=== PATIENT | male | born 2000 | race Hispanic/Latino ===

== ENCOUNTER 2022-06-30 06:07 | Emergency (ER) | payer OTHER ==
--- OUTSIDE RECORDS SUMMARY | 2022-06-30 06:10 | XMS REPORT | Continuity of Care Document ---
:[address] [facility] t Address [address] [place] [address] Care Team Providers Name Role Phone Dakotah Aquino Attending Clinician Unavailable CLARA DHILLON Attending Clinician Unavailable Problems This patient has no known problems. Allergies, Adverse Reactions, Alerts Allergy Allergy Status Severity Reaction(s) Onset Inactive Treating Comm ents Source Name Type Date Date Clinician NO KNOWN Drug Active Univers [facility]ERG[facility] Class [facility] of [facility] Medications This patient has no known medications. Procedures This patient has no known procedures. Encounters Start End Encounter Admission Attending Care Care Encounter Source Date/Time Date/Time Type Type Clinicians Facility Department ID 2021-11-[address] [facility] [id number] Common 13:27:09 Avnee [id number] [facility] 2021[facility] [facility] [id number] Common 13:25:28 Avnee [id number] [facility] 2021-11-[address] [facility] [id number] Common 13:22:19 Avnee [id number] [facility] 2021-11-[address] [facility] [id number] Common 13:16:06 Avnee [id number] [facility] 2021-11-29 Outpatient Aquino, STLMLC STLMLC [id number] Common 13:15:42 Avnee [id number] [facility] 2021-11-29 Outpatient Aquino, STLMLC STLMLC [id number] Common 13:14:48 Avnee [id number] [facility] 2022-08-06 2022-08-06 Outpatient Mariana [facility]ILLON [facility] [id number] [id number] Univers 08:30:00 08:30:00 CLARA [id number] [facility] 2022-07-30 2022-07-30 [facility] [id number] [id number] Univers 15:30:00 15:30:00 CLARA [id number] [facility] 2021-05-19 2021-05-19 Outpatient STLMLC STLMLC [id number] Common 00:00:00 00:00:00 [facility] 2021-05-15 2021-05-15 Outpatient STLMLC STLMLC [id number] Common 00:00:00 00:00:00 [facility] 2021-05-15 2021-05-15 Outpatient STLMLC STLMLC [id number] Common 00:00:00 00:00:00 [facility] 2021-05-12 2021-05-12 Outpatient STLMLC STLMLC [id number] Common 00:00:00 00:00:00 [facility] 2021-04-20 2021-04-20 Outpatient STLMLC STLMLC [id number] Common 00:00:00 00:00:00 [facility] 2021-04-19 2021-04-19 Outpatient STLMLC STLMLC [id number] Common 00:00:00 00:00:00 [facility] 2021-04-19 2021-04-19 Outpatient STLMLC STLMLC [id number] Common 00:00:00 00:00:00 [facility] Results This patient has no known results.
[2022-06-30] MEDS ORDERED: NA CHLORIDE 0.9% 2,000 ML ONE (06:53)
[2022-06-30 07:12] LABS: Absolute Lymphocytes (CBC) 1.1 K/uL (0.7-4.9); Hematocrit 45.3 % (39.6-49.0); Lymphocytes % 8.9 % (15.3-44.8); MPV 7.1 fL (7.6-11.3); RBC Red Blood Cell Count 5.33 M/uL (4.33-5.43)
[2022-06-30 07:21] LABS: Protime INR 1.07
[2022-06-30 07:28] LABS: Albumin 4.4 g/dL (3.4-5.0); Bilirubin Total 0.4 mg/dL (0.2-1.0); Protein, Total 8.4 g/dL (6.4-8.2)
[2022-06-30] MEDS ORDERED: ACETAMINOPHEN 500 MG TAB ONE (08:10)
--- NOTE | 2022-06-30 08:20 | RAD REPORT ---
EXAM DESCRIPTION: RAD - Chest Single View - 06/30/2022 8:08 am CLINICAL HISTORY: FEVER COMPARISON: CHEST PA AND LAT 2 VIEW dated 10/15/2012 FINDINGS: Lines: None. Lungs: No evidence of edema or pneumonia. Pleural: No significant pleural effusions or pneumothorax. Cardiac: The heart size is within normal limits. Bones: No acute fractures. Other: IMPRESSION: No acute cardiopulmonary disease.
--- NOTE | 2022-06-30 09:44 | ER ---
Nurse's Notes [facility] Name: Alexander Krishnamurthy Age: 21 yrs Sex: Male : 2000 Arrival Date: 06/30/2022 Time: 06:10 Bed 16 Private MD: Diagnosis: Fever, unspecified;Chest pain, unspecified Presentation: 06/30 06:34 Chief complaint: Patient states: I started having chest pain at 0400. It feels like a jb4 pressure pain that is on the left side of my chest that comes and goes. I am also coughing up green phlegm. Coronavirus screen: Client presents with at least one sign or symptom that may indicate coronavirus-19. Standard/surgical mask placed on the client. Provider contacted for isolation considerations. Ebola Screen: No symptoms or risks identified at this time. Initial Sepsis Screen: Does the patient meet any 2 criteria? RR > 20 per min. Temp <36.0*C (96.8*F)) or > 38.3*C (100.9*F). HR > 90 bpm. Yes Does the patient have a suspected source of infection? Yes: Productive cough/pneumonia If YES to both, name of provider notified: Alfredo Epperson DO Risk Assessment: Do you want to hurt yourself or someone else? Patient reports no desire to harm self or others. Onset of symptoms was June 30, 2022. Transition of care: patient was not received from another setting of care. 06:34 Method Of Arrival: Ambulatory jb4 06:34 Acuity: WESLEY 2 jb4 Triage Assessment: 07:00 General: Behavior is calm, cooperative. jg9 Historical: - Allergies: 06:36 No Known Allergies; jb4 - Home Meds: 06:36 None [Active]; jb4 - PMHx: 06:36 None; jb4 - Immunization history:: Adult Immunizations up to date. - Social history:: Smoking status: Patient denies any tobacco usage or history of. Screenin:05 Fall Risk None identified. jg9 07:07 Abuse screen: Denies threats or abuse. Nutritional screening: No deficits noted. ja4 Tuberculosis screening: No symptoms or risk factors identified. Assessment: 07:00 Reassessment: No changes from previously documented assessment. Patient and/or family jg9 updated on plan of care and expected duration. Pain level reassessed. Patient is alert, oriented x 3, equal unlabored respirations, skin warm/dry/pink. 07:07 General: Appears uncomfortable. Pain: Pain does not radiate. Pain currently is 7 out of ja4 10 on a pain scale. Quality of pain is described as aching, Pain began 2 hours ago. Cardiovascular: No deficits noted. Chest pain. 08:00 Reassessment: No changes from previously documented assessment. Patient and/or family jg9 updated on plan of care and expected duration. Pain level reassessed. Patient is alert, oriented x 3, equal unlabored respirations, skin warm/dry/pink. Patient states feeling better. Patient states symptoms have improved. 09:00 Reassessment: No changes from previously documented assessment. Patient and/or family jg9 updated on plan of care and expected duration. Pain level reassessed. Patient is alert, oriented x 3, equal unlabored respirations, skin warm/dry/pink. Vital Signs: 06:34 BP 144 / 92; Pulse 121; Resp 26; Temp 101.7(O); Pulse Ox 98% on R/A; Weight 108.86 kg jb4 (R); Height 6 ft. 0 in. (182.88 cm) (R); Pain 8/10; 07:00 BP 102 / 65; Pulse 105; Resp 25 S; Pulse Ox 99% on R/A; jg9 08:30 BP 130 / 69; Pulse 99; Resp 19 S; Pulse Ox 100% on R/A; jg9 08:45 BP 127 / 70; Pulse 92; Resp 20 S; Pulse Ox 99% on R/A; jg9 09:30 BP 123 / 63; Pulse 93; Resp 15 S; Temp 98.7(O); Pulse Ox 100% on R/A; jg9 10:00 BP 122 / 69; Pulse 93; Resp 16 S; Pulse Ox 98% on R/A; jg9 06:34 Body Mass Index 32.55 (108.86 kg, 182.88 cm) 4 ED Course: 06:10 Patient arrived in ED. ja2 06:27 Alfredo Epperson DO is Attending Physician. ms3 06:28 Timbo Spencer, RN is Primary Nurse. ja4 06:30 Inserted saline lock: 20 gauge in left antecubital area, using aseptic technique. Blood ja4 collected. Patient maintains SpO2 saturation greater than 95% on room air. 06:36 Triage completed. jb4 06:36 Arm band placed on right wrist. jb4 06:46 Patient has correct armband on for positive identification. Placed in gown. Bed in low mh5 position. Call light in reach. Side rails up X 1. security monitor on. Pulse ox on. NIBP on. 06:46 EKG done, by ED staff, reviewed by Alfredo Epperson DO. 5 07:05 Blood Culture Adult (2) Sent. ja4 07:05 CBC with Diff Sent. ja4 07:05 CMP Sent. ja4 07:05 Lactate Sent. ja4 07:05 Protime (+inr) Sent. ja4 07:05 Ptt, Activated Sent. ja4 07:07 No provider procedures requiring assistance completed. ja4 07:41 Lab(s) recollected, by me, sent to lab. jw7 07:42 Troponin HS Sent. jw7 08:02 Troponin HS Sent. jw7 08:10 XRAY Chest (1 view) In Process Unspecified. EDMS 08:11 Attending Physician role handed off by Alfredo Epperson DO ms3 08:11 Ish Pizano MD is Attending Physician. ms3 10:12 IV discontinued. jg9 Administered Medications: 08:10 Drug: Tylenol 1000 mg Route: PO; 6 09:34 Follow up: Response: No adverse reaction; Temperature is decreased jg9 Medication: 07:07 VIS not applicable for this client. ja4 Outcome: 09:43 Discharge ordered by . rn 10:12 Discharged to home ambulatory. jg9 10:12 Condition: improved 10:12 Discharge instructions given to patient, Instructed on discharge instructions, follow up and referral plans. Demonstrated understanding of instructions, follow-up care, Prescriptions given X 1. 10:12 Patient left the ED. jg9 Signatures: Dispatcher [employer] EDMS Ish Pizano MD MD rn Bryson, James RN RN devin4 Carine Ha [facility] Alfredo Epperson DO DO ms3 Radha Roberts ja2 Lyubov Mendiola, BAIRON RN jh6 Lyubov Tyler, RN RN jg9 Niya Alva7 Timbo Spencer RN RN ja4 Corrections: (The following items were deleted from the chart) 09:35 09:15 BP 123 / 63; Pulse 93bpm; Resp 15bpm; Spontaneous; Pulse Ox 100% RA; Temp 98.7F jg9 Oral; jg9 09:36 08:00 Reassessment: No changes from previously documented assessment. Patient and/or jg9 family updated on plan of care and expected duration. Pain level reassessed. Patient is alert, oriented x 3, equal unlabored respirations, skin warm/dry/pink. jg9
--- NOTE | 2022-06-30 09:44 | EDPHYS ---
Physician Documentation [facility] Name: Alexander Krishnamurthy Age: 21 yrs Sex: Male : 2000 Arrival Date: 06/30/2022 Time: 06:10 Bed 16 Private MD: ED Physician Ish Pizano HPI: 06/30 08:08 This 21 yrs old Male presents to ER via Ambulatory with complaints of Chest ms3 Pain, Fainting, Dizziness, Headache. 08:08 The patient or guardian reports chest pain that is located primarily in the substernal ms3 area. The pain does not radiate. Associated signs and symptoms: Pertinent positives: cough. The chest pain is described as squeezing. Duration: The patient or guardian reports a single episode, that lasted 25 minute(s). Modifying factors: The symptoms are alleviated by nothing. the symptoms are aggravated by nothing. Severity of pain: At its worst the pain was severe in the emergency department the pain is unchanged is a / 10. Historical: - Allergies: 06:36 No Known Allergies; jb4 - Home Meds: 06:36 None [Active]; jb4 - PMHx: 06:36 None; jb4 - Immunization history:: Adult Immunizations up to date. - Social history:: Smoking status: Patient denies any tobacco usage or history of. ROS: 08:08 Neck: Negative for injury, pain, and swelling. ms3 08:08 Abdomen/GI: Negative for abdominal pain, nausea, vomiting, diarrhea, and constipation, MS/Extremity: Negative for injury and deformity, Skin: Negative for injury, rash, and discoloration, Psych: Negative for depression, anxiety, suicide ideation, homicidal ideation, and hallucinations. 08:08 Constitutional: Positive for chills. 08:08 Cardiovascular: Positive for chest pain. 08:08 All other systems are negative. Exam: 06:44 ECG was reviewed by the Attending Physician. ms3 08:08 Constitutional: This is a well developed, well nourished patient who is awake, alert, ms3 and in no acute distress. Head/Face: Normocephalic, atraumatic. Neck: Trachea midline, no cervical lymphadenopathy. Supple, full range of motion without nuchal rigidity, or vertebral point tenderness. No Meningismus. Chest/axilla: Normal chest wall appearance and motion. Nontender with no deformity. 08:08 Respiratory: Lungs have equal breath sounds bilaterally, clear to auscultation and percussion. No rales, rhonchi or wheezes noted. No increased work of breathing, no retractions or nasal flaring. Abdomen/GI: Soft, non-tender, with normal bowel sounds. No distension or tympany. No guarding or rebound. No evidence of tenderness throughout. Skin: Warm, dry with normal turgor. Normal color with no rashes, no lesions, and no evidence of cellulitis. MS/ Extremity: Pulses equal, no cyanosis. Neurovascular intact. Full, normal range of motion. Psych: Awake, alert, with orientation to person, place and time. Behavior, mood, and affect are within normal limits. 08:08 Cardiovascular: Rate: tachycardic, Rhythm: regular, Pulses: no pulse deficits are appreciated, Heart sounds: normal. Vital Signs: 06:34 BP 144 / 92; Pulse 121; Resp 26; Temp 101.7(O); Pulse Ox 98% on R/A; Weight 108.86 kg jb4 (R); Height 6 ft. 0 in. (182.88 cm) (R); Pain 8/10; 07:00 BP 102 / 65; Pulse 105; Resp 25 S; Pulse Ox 99% on R/A; jg9 08:30 BP 130 / 69; Pulse 99; Resp 19 S; Pulse Ox 100% on R/A; jg9 08:45 BP 127 / 70; Pulse 92; Resp 20 S; Pulse Ox 99% on R/A; jg9 09:30 BP 123 / 63; Pulse 93; Resp 15 S; Temp 98.7(O); Pulse Ox 100% on R/A; jg9 10:00 BP 122 / 69; Pulse 93; Resp 16 S; Pulse Ox 98% on R/A; jg9 06:34 Body Mass Index 32.55 (108.86 kg, 182.88 cm) 4 MDM: 06:44 Differential diagnosis: abnormal EKG, acute myocardial infarction, acute pericarditis, ms3 myocarditis, pneumonia. Transition of care: After a detail discussion of the patient's case, care is transferred to Ish Pizano MD. 06:46 Patient medically screened. ms3 09:41 Data reviewed: vital signs, nurses notes, lab test result(s), radiologic studies, plain rn films, and as a result, I will discharge patient. Counseling: I had a detailed discussion with the patient and/or guardian regarding: the historical points, exam findings, and any diagnostic results supporting the discharge/admit diagnosis, lab results, radiology results, the need for outpatient follow up, to return to the emergency department if symptoms worsen or persist or if there are any questions or concerns that arise at home. Special discussion: I discussed with the patient/guardian in detail that at this point there is no indication for admission to the hospital. It is understood, however, that if the symptoms persist or worsen the patient needs to return immediately for re-evaluation. 06/30 06:37 Order name: Blood Culture Adult (2) [facility] 06/30 06:37 Order name: CBC with Diff; Complete Time: 08:28 [facility] 06/30 06:37 Order name: CMP; Complete Time: 08:28 [facility] 06/30 06:37 Order name: Lactate; Complete Time: 08:28 [facility] 06/30 06:37 Order name: Protime (+inr); Complete Time: 08:28 [facility] 06/30 06:37 Order name: Ptt, Activated; Complete Time: 08:28 [facility] 06/30 06:37 Order name: Cardiac monitoring; Complete Time: 07:46 [facility] 06/30 07:08 Order name: Troponin HS; Complete Time: 08:28 06/30 07:08 Order name: XRAY Chest (1 view); Complete Time: 08:28 06/30 07:08 Order name: EKG; Complete Time: 07:08 06/30 08:29 Order name: SARS-COV-2 RT PCR (Document "Date of Onset" if Symptomatic); Complete Time: rn 09:41 06/30 08:29 Order name: Flu; Complete Time: 09:41 06/30 06:37 Order name: EKG - Nurse/Tech; Complete Time: 06:45 [facility] 06/30 06:37 Order name: IV Saline Lock - Large Bore; Complete Time: 07:43 [facility] 06/30 06:37 Order name: Labs collected and sent; Complete Time: 07:05 [facility] 06/30 06:37 Order name: O2 Sat Monitoring; Complete Time: 07:46 [facility] 06/30 07:08 Order name: IV Saline Lock; Complete Time: 07:42 rn EC:44 Rate is 77 beats/min. Rhythm is regular. QRS [place] is Normal. QRS interval is normal. ms3 Clinical impression: NSR w/ Non-specific ST/T Changes and incomplete RBBB. Administered Medications: 08:10 Drug: Tylenol 1000 mg Route: PO; jh6 09:34 Follow up: Response: No adverse reaction; Temperature is decreased jg9 Disposition Summary: 06/30/22 09:43 Discharge Ordered Location: Home rn Problem: new rn Symptoms: have improved rn Condition: Stable rn Diagnosis - Fever, unspecified rn - Chest pain, unspecified rn Followup: rn - With: Private Physician - When: As needed - Reason: Recheck today's complaints, Re-evaluation by your physician Discharge Instructions: - Discharge Summary Sheet rn - Nonspecific Chest Pain, Adult rn - Fever, Adult rn Forms: - Medication Reconciliation Form rn - Thank You Letter rn - Antibiotic cornice maker - Prescription Opioid Use rn - Work release form eb Prescriptions: - Zithromax Z-Harry 250 mg Oral Tablet - take 1 tablet by ORAL route as directed for 5 days Day 1 - take two (2) tablets rn one time. Day 2, 3, 4 , 5 take one (1) tablet once daily.; 6 tablet; Refills: 0, Product Selection Permitted Signatures: Dispatcher [employer] Ish Arriaga MD MD rn Bryson, James RN RN jb4 Alfredo Epperson DO DO ms3 Lyubov Mendiola RN RN jh6 Lyubov Tyler RN jg9 Corrections: (The following items were deleted from the chart) 07:46 06:37 Accucheck ordered. jb4 jg9 08:34 06:37 Oxygen Per Protocol ordered. jb4 jg9
[2022-06-30 10:31] VITALS: TEMP 98.7
[2022-06-30 10:33] VITALS: BP 122/69; O2SAT 98
--- NOTE | 2022-07-02 10:23 | EKG ---
Test Date: 2022-06-30 Test Time: 06:44:41 [employer] Geologist: YOEL MEASUREMENT RESULTS: Intervals: Rate: 77 [place]: 164 QRSD: 92 QT: 320 QTc: 362 [place]: P: 70 WA: 164 QRS: 50 T: 53 INTERPRETIVE STATEMENTS: Normal sinus rhythm Possible Left atrial enlargement Incomplete right bundle branch block Borderline ECG No previous ECG available for comparison Electronically Signed On 07-02-22 10:20:13 CDT by Chase Joyner
== END 2022-06-30 10:12 | disposition home or self-care (01) ==
LOC: ER 06:07
DX: R07.89 Other chest pain (principal); R50.9 Fever, unspecified; Z20.822 Contact with and (suspected) exposure to COVID-19
CPT/HCPCS: 93005; 87040 ×2; 85025; 36415; 85610; 83605; 85730; 84484; 80053; 87804 ×2; 71045; 99285; U0003; J7030